=== PATIENT | male | born 1985 ===

== ENCOUNTER 2017-04-02 13:21 | Emergency (ER) | payer SELFPAY ==
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
--- NOTE | ~2017-04-02 | EKG ---
PATIENT: MONICA MANRIQUEZ UNIT #: [id number] Ventricular Rate: 73 BPM Atrial Rate: 73 BPM P-R Interval: 148 ms QRS Duration: 76 ms Q-T Interval: 376 ms QTC Calculation(Bezet): 414 ms P [place]: 30 degrees Calculated R [place]: -3 degrees Calculated T [place]: -21 degrees Diagnosis Line: Normal sinus rhythm Diagnosis Line: Nonspecific ST abnormality Diagnosis Line: Abnormal ECG Diagnosis Line: No previous ECGs available Diagnosis Line: Confirmed by AYDE SOTO MD ([id number]) on Diagnosis Line: 04/03/2017 1:44:56 PM INTERPRETING MD: ROSARIO
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
== END 2017-04-02 17:39 | disposition home or self-care (01) ==
LOC: CED 13:21
DX: Z04.1 Encounter for examination and observation following transport accident (principal); Z23 Encounter for immunization
CPT/HCPCS: 70450; 71020; 72040; 73562; 90471; 90715; 93005; 96372; 99284; J1885